=== PATIENT | female | born 1950 | race Caucasian/White ===

== ENCOUNTER → 2018-12-21 | Outpatient (REF) | payer BC | LOC: M LAB LCGH 13:45 | PROVIDERS: ATTEND Surgery | DX: K37 Unspecified appendicitis (principal) ==

== ENCOUNTER → 2019-04-28 | Outpatient (REF) | LOC: M LAB LCGH 15:29 | PROVIDERS: ATTEND Surgery | DX: K82.9 Disease of gallbladder, unspecified (principal) ==

== ENCOUNTER → 2019-05-19 | Outpatient (REF) | LOC: M LAB LCGH 17:27 | PROVIDERS: ATTEND Surgery | DX: K29.00 Acute gastritis without bleeding (principal) ==

== ENCOUNTER → 2022-07-22 | Outpatient (CLI) | payer BC, MEDICARE | LOC: M SOG 11:05 | PROVIDERS: ATTEND Orthopaedic Surgery Hand Surgery | DX: M79.641 Pain in right hand (principal); M79.642 Pain in left hand ==

== ENCOUNTER 2022-08-20 07:10 | Day surgery (SDC) | payer MEDICARE ==
[~2022-08-20] VITALS: Ht 157.5 cm; Wt 98.4 kg
[~2022-08-20 07:10] MED LIST: D 101000; ECOT81TA5 PO; LEVO125T4 PO; LOSA50TA28 PO; PRAV40TA2 PO; SERT50TA29 PO
[2022-08-20] MEDS ORDERED: ZYRTTAB8 PO (07:35)
[2022-08-20] MEDS ORDERED: LR 1,000 ML IV SCH ×2 (07:40→11:20)
[2022-08-20] MEDS ORDERED: BACITRACIN OINTMENT 30GM TUBE As Ordered ONE (08:04)
[2022-08-20] MEDS ORDERED: BUPIVACAINE HCL 0.25% 30ML VIAL As Ordered ONE (08:05)
[2022-08-20] MEDS ORDERED: propofoL 200 MG/20 ML VIAL As Ordered ONE ×2 (08:13→08:52)
[2022-08-20] MEDS ORDERED: LIDOCAINE 2% 100MG/5ML SDV (FOR ANES.) As Ordered ONE (08:13)
[2022-08-20] MEDS ORDERED: ONDANSETRON 4MG 2ML VIAL As Ordered ONE (08:14)
[2022-08-20] MEDS ORDERED: fentaNYL 250 MCG/5 ML INJECTION As Ordered ONE (08:14)
[2022-08-20] MEDS ORDERED: ceFAZolin SOD 2 GM in IV 1 EA IV ONE (08:30)
[2022-08-20] MEDS ORDERED: ceFAZolin 2 GM/D5W 50 ML IV BAG As Ordered ONE (08:59)
[2022-08-20] MEDS ORDERED: ACETAMINOPHEN 1000MG 100ML IV BAG As Ordered ONE (09:13)
[2022-08-20] MEDS ORDERED: METOCLOPRAMIDE INJ 10MG/2ML VIAL IV PRN (11:20)
[2022-08-20] MEDS ORDERED: ONDANSETRON 4MG 2ML VIAL IV PRN (11:20)
[2022-08-20] MEDS ORDERED: oxyCODONE 5MG TAB PO PRN (11:20)
[2022-08-20] MEDS ORDERED: fentaNYL 100 MCG/2 ML INJECTION IV PRN (11:20)
[2022-08-20] MEDS ORDERED: PERC5TAB12 PO (11:28)
[2022-08-20 12:20] VITALS: BP 158/86
[2022-08-20] MEDS ORDERED: KETOROLAC 60MG 2ML VIAL As Ordered ONE (13:39)
== END 2022-08-20 12:25 | disposition home or self-care (01) ==
LOC: M SDC 07:10
PROVIDERS: ATTEND Orthopaedic Surgery Hand Surgery
DX: M72.0 Palmar fascial fibromatosis [Dupuytren] (principal); I10 Essential (primary) hypertension; E03.9 Hypothyroidism, unspecified; K21.9 Gastro-esophageal reflux disease without esophagitis; Z88.8 Allergy status to other drugs, medicaments and biological substances; Z79.82 Long term (current) use of aspirin; Z79.899 Other long term (current) drug therapy
CPT/HCPCS: 26123; 26125; 87635; 88304; J0131; J0690; J1100; J1885; J2405; J3010